=== PATIENT | female | born 1985 | race African-American/Black ===

== ENCOUNTER 2017-10-29 08:04 | Day surgery (SDC) | payer OTHER ==
[~2017-10-29 08:04] MED LIST: Acetaminophen/HYDROcodone 325-5 MG Tab PO PRN; Bupivacaine 0.25%/EPINEPHrine 1:200,000 10 ML SDV INJECT ONE; Lactated Ringers 1,000 ML IV SCH; Lidocaine 2% 5 ML SDV ONE; Midazolam 1 MG/ML 2 ML SDV ONE; Ondansetron 4 MG/2 ML SDV ONE; Propofol 200 MG/20 ML SDV ONE; Rocuronium 10 MG/ML 10 ML Syringe ONE; ceFAZolin 2 GM in Premix Bag 1 BAG IV ONE; fentaNYL 250 MCG/5 ML SDV ONE
[2017-10-29] MEDS ORDERED: ceFAZolin/Dextrose,Iso-Osmotic 2 GM/50 ML Duplex Bag IV ONE (08:20)
[2017-10-29] MEDS ORDERED: diphenhydrAMINE 50 MG/ML SDV ONE (08:22)
[2017-10-29] MEDS ORDERED: Dexamethasone 4 MG/ML 5 ML MDV ONE (08:22)
[2017-10-29] MEDS ORDERED: Bupivacaine 25%/EPINEPHrine/PF 30 ML ONE (08:40)
[2017-10-29] MEDS ORDERED: fentaNYL 100 MCG/2 ML SDV IVPUSH PRN (08:49)
[2017-10-29] MEDS ORDERED: Scopolamine 1.5 MG Transdermal Patch TRDERM PRN (08:49)
--- NOTE | 2017-10-29 08:49 | PCM.PREANE ---
Preanesthetic Assessment - Anesthesia/Transfusion/Family Hx Anesthesia History: No Prior Anesthesia Family History of Anesthesia Reaction: No Transfusion History: No Prior Transfusion(s) Intubation History: Unknown - Review of Systems General: No Symptoms Pulmonary: No Symptoms Cardiovascular: No Symptoms Gastrointestinal: No Symptoms Neurological: No Symptoms Other: Reports: None - Physical Assessment Height: 1.7 m Weight: 108.862 kg ASA Class: 2 Mental Status: Alert & Oriented x3 Airway Class: Mallampati = 2 Dentition: Reports: Normal Dentition Thyro-Mental Finger Breadths: 3 Mouth Opening Finger Breadths: 3 ROM/Head Extension: Full Lungs: Clear to Auscultation, Normal Respiratory Effort Cardiovascular: Regular Rate, Regular Rhythm - Lab Values: Laboratory Last Values Urine HCG, Qual NEGATIVE (NEGATIVE) 10/29/17 08:10 - Allergies Allergies/Adverse Reactions: Allergies Allergy/AdvReac Type Severity Reaction Status Date / Time No Known Allergies Allergy Verified 10/23/17 12:55 - Blood Blood Available: No - Anesthesia Plan Pre-Op Medication Ordered: None - Acknowledgements Anesthesia Type Planned: General Anesthesia Pt an Appropriate Candidate for the Planned Anesthesia: Yes Alternatives and Risks of Anesthesia Discussed w Pt/Guardian: Yes Pt/Guardian Understands and Agrees with Anesthesia Plan: Yes PreAnesthesia Questionnaire Respiratory History: Reports: PE Other Respiratory History: had a PE 7 years ago- no problems since [employer] History: Reports: Endocrine/Metabolic History: Reports: Obesity/BMI 30+ - SUBSTANCE USE Smoking Status *Q: Never Smoker Recreational Drug Use History: No - HOME MEDS Home Medications: Home Meds . [No Known Home Meds] 10/23/17 [History] - CURRENT (IN HOUSE) MEDS Current Meds: Current Medications Hydrocodone Bitart/Acetaminophen ([place] 325-5 Mg) 1 tab PO Q4H PRN PRN Reason: Pain Lactated Ringer's (Ringers, Lactated) 1,000 mls @ 125 mls/hr IV ASDIRECTED [facility] Last Admin: 10/29/17 08:42 Dose: 125 mls/hr Discontinued Medications Bupivacaine HCl/Epinephrine Bitart (Marcaine 0.25%/Epinephrine 1:200,000) 30 ml INJECT ONETIME ONE Stop: 10/29/17 08:01 Cefazolin Sodium/Dextrose (Ancef) Confirm Administered Dose 2 gm IV .STK-MED ONE Stop: 10/29/17 08:21 Dexamethasone (Dexamethasone) Confirm Administered Dose 20 mg .ROUTE .STK-MED ONE Stop: 10/29/17 08:23 Diphenhydramine HCl (Benadryl) Confirm Administered Dose 50 mg .ROUTE .STK-MED ONE Stop: 10/29/17 08:23 Fentanyl (Sublimaze) Confirm Administered Dose 250 mcg .ROUTE .STK-MED ONE Stop: 10/29/17 07:28 Cefazolin Sodium/Dextrose 2 gm (/ Premix) 50 mls @ 100 mls/hr IV ONETIME ONE Stop: 10/29/17 08:29 Acetaminophen (Ofirmev) Confirm Administered Dose 100 mls @ as directed IV .STK- MED ONE Stop: 10/29/17 08:24 Bupivacaine HCl/Epinephrine Bitart (Sensorc Mpf 0.25%-Epi 1:126648) Confirm Administered Dose 60 mls @ as directed .ROUTE .STK-MED ONE Stop: 10/29/17 08:41 Lidocaine (Xylocaine-Mpf 2%) Confirm Administered Dose 5 ml .ROUTE .STK-MED ONE Stop: 10/29/17 07:27 Midazolam HCl (Versed 1 Mg/Ml) Confirm Administered Dose 2 mg .ROUTE .STK-MED ONE Stop: 10/29/17 07:27 Ondansetron HCl (Zofran) Confirm Administered Dose 4 mg .ROUTE .STK-MED ONE Stop: 10/29/17 07:27 Propofol (Diprivan 20 Ml) Confirm Administered Dose 200 mg .ROUTE .STK-MED ONE Stop: 10/29/17 07:27 Rocuronium [place] (Zemuron) Confirm Administered Dose 100 mg .ROUTE .STK-MED ONE Stop: 10/29/17 07:27
[2017-10-29] MEDS ORDERED: HYDROmorphone 2 MG/ML SDV ONE ×2 (09:28→10:12)
--- NOTE | 2017-10-29 15:47 | PCM.OPNOTE ---
- General Post-Op/Procedure Note Date of Surgery/Procedure: 10/29/17 Operative Procedure(s): bilateral breast reduction Pre Op Diagnosis: bilateral macromastia Post-Op Diagnosis: Same Anesthesia Technique: General ET Tube, Local Primary Surgeon: Nicolle Prado Thread Grinder Tool: Sophie Collier Complications: None Condition: Good Free Text/Narrative:: Intake & Output 10/28/17 10/29/17 10/29/17 23:59 07:59 15:59 Intake Total 2825 Output Total 1760 Balance 1065
--- NOTE | 2017-11-03 14:30 | OR ---
SURGEON: INGRID COLUNGA MD DATE OF PROCEDURE: 10/29/2017 PREOPERATIVE DIAGNOSIS: Bilateral macromastia. POSTOPERATIVE DIAGNOSIS: Bilateral macromastia. PROCEDURE: Bilateral breast reduction. SUBSTANCE ABUSE PREVENTION COORDINATOR: LUIZA Ferrari. ANESTHESIA: General ET tube with local. INDICATIONS: Ms. Colón is a 32-year-old female with bilateral macromastia, borderline gigantomastia. Risks and benefits of breast reduction were discussed with her and she was in agreement to proceed. Risks were including, but not limited to, bleeding, infection, damage to underlying or overlying structures, possible need for future interventions, possible scarring. PROCEDURE IN DETAIL: After informed consent was obtained and placed on the chart, the patient was brought to the operating theater and laid in supine position. After adequate general anesthesia was obtained, the area was prepped and draped and a time-out was completed to confirm side and site. Attention was then paid to infiltration of 0.25% Marcaine with epinephrine in a field block of the breast. Once adequately blocked, attention was then paid to marking of an inferior pedicle at the base width of 8 cm. She would like to be as small as possible. Once adequately marked and the Ching pattern incisions were marked in the preanesthesia area with 8-9 cm limbs. The inferior pedicle was de- epithelialized and the nipple-areolar complex was marked at 36 mm. Once adequately isolated, attention was then paid to the superior skin flap, which was dissected just a little over 1 cm thick tapering to the chest wall medially and [address] to the chest wall laterally. The intervening breast tissue between the inferior pedicle and the superior skin flaps were then removed. Once adequately removed, the tissue was weighed. This measuring nearly 1100 g on the right and 1200 g on the left. Once the breast tissue was removed, the area was copiously irrigated and meticulous hemostasis was obtained. The skin flaps were redraped and stapled in place. Once symmetric, dissection was connected bilaterally and both breast tissue was sent for pathology. Once the skin was redraped in the standard fashion, the patient was sat up and symmetry was appreciated. The new position of the nipple areolar complexes was marked, the patient was laid in the supine position, and the nipple-areolar complex was cut out. Once adequately cut out, the skin was closed using deep 3-0 Monocryl stitches for the dermis using STRATAFIX and the subcuticular for the skin was a 4-0 Monocryl STRATAFIX for closure. The wounds were dressed with Steri-Strips, Mastisol, fluffs, and tape. She was placed in a compression bra. The patient tolerated the procedure well. All counts of needles were correct at the end of the case. FOLLOWUP INSTRUCTIONS: The patient will see us tomorrow in clinic. Sooner if any problems, questions, or concerns. KARTHIK VALENCIA /[id number]
== END 2017-10-29 16:05 | disposition home or self-care (01) ==
LOC: MW.SDS 08:04
PROVIDERS: ATTEND Plastic Surgery
DX: N62 Hypertrophy of breast (principal); N60.12 Diffuse cystic mastopathy of left breast; N60.11 Diffuse cystic mastopathy of right breast
CPT/HCPCS: 19318; 81025; 88304; A9270; J0690; J1100; J1170; J1200; J2250; J2405; J3010; J7120; J2704

== ENCOUNTER 2018-11-16 05:47 | Emergency (ER) | payer OTHER ==
--- NOTE | 2018-11-16 05:57 | EDM.PDOC ---
ED HPI GENERAL MEDICAL PROBLEM - General Stated Complaint: POSSIBLE DISLOCATED LEFT SHOULDER Time Seen by Provider: 11/16/18 05:56 Source of Information: Reports: Patient - History of Present Illness INITIAL COMMENTS - FREE TEXT/NARRATIVE: HISTORY AND PHYSICAL: History of present illness: [Patient presents with left shoulder pain 7 out of 10 unable to sleep off and on for the last couple of months, she has taken Tylenol with some relief, but is concerned she may have a dislocated shoulder Seems that a couple of months ago she bought a new 4 [employer] and since has been having the left arm pain her shoulder pain which she generally gets summertime as she likes to drive [address] [employer] in the nice weather, she does not know of any other injury or trauma No fever nausea vomiting chills sweats] Review of systems: As per history of present illness and below otherwise all systems reviewed and negative. Past medical history: As per history of present illness and as reviewed below otherwise noncontributory. Surgical history: As per history of present illness and as reviewed below otherwise noncontributory. Social history: No reported history of drug or alcohol abuse. Family history: As per history of present illness and as reviewed below otherwise noncontributory. Physical exam: HEENT: Atraumatic, normocephalic, pupils reactive, negative for conjunctival pallor or scleral icterus, mucous membranes moist, throat clear, neck supple, nontender, trachea midline. Lungs: Clear to auscultation, breath sounds equal bilaterally, chest nontender. Heart: S1S2, regular, negative for clicks, rubs, or JVD. Abdomen: Soft, nondistended, nontender. Negative for masses or hepatosplenomegaly. Negative for costovertebral tenderness. Pelvis: Stable nontender. Genitourinary: Deferred. Rectal: Deferred. Extremities: Atraumatic, negative for cords or calf pain. Neurovascular unremarkable. Left shoulder no pain with head movement full range of passive motion of the shoulder itself elbow and wrist on affected entirely limb neurovascularly intact tender over bicep tendon insertion, very limited exam due to pain as far as active range of motion exam Neuro: Awake, alert, oriented. Cranial nerves II through XII unremarkable. Cerebellum unremarkable. Motor and sensory unremarkable throughout. Exam nonfocal. Diagnostics: [Left shoulder complete ] Therapeutics: [Toradol Medrol Dosepak ] Impression: [Left shoulder injury] Tendinitis Definitive disposition and diagnosis as appropriate pending reevaluation and review of above. left shoulder Pain Score (Numeric/FACES): 7 - Related Data Allergies Allergy/AdvReac Type Severity Reaction Status Date / Time No Known Allergies Allergy Verified 11/16/18 06:00 Home Meds: Home Meds . [No Known Home Meds] 11/16/18 [History] Past Medical History Respiratory History: Reports: PE Other Respiratory History: had a PE 7 years ago- no problems since [employer] History: Reports: Endocrine/Metabolic History: Reports: Obesity/BMI 30+ ED ROS GENERAL - Review of Systems Review Of Systems: See Below ED EXAM, GENERAL - Physical Exam Exam: See Below Course - Vital Signs Last Recorded V/S: Last Vital Signs Temp 97.2 F 11/16/18 05:50 Pulse 85 11/16/18 05:50 Resp 18 11/16/18 05:50 BP 128/79 11/16/18 05:50 Pulse Ox 99 11/16/18 05:50 - Orders/Labs/Meds Orders: Active Orders 24 hr Category Date Time Status Shoulder Comp Lt [CR] Stat Exams 11/16/18 05:56 Taken Departure - Departure Time of Disposition: 06:22 Disposition: Home, Self-Care 01 Condition: Good Clinical Impression: Injury of left shoulder, Tendinitis - Discharge Information Referrals: PCP,None [Primary Care Provider] - Additional Instructions: Medication as prescribed Return if symptoms persist or worsen Follow-up with orthopedist, call phone number below to schedule appropriate follow-up [facility] [address], [address] [place] [address] my orthopedic The following information is given to patients seen in the emergency department who are being discharged to home. This information is to outline your options for follow-up care. We provide all patients seen in our emergency department with a follow-up referral. The need for follow-up, as well as the timing and circumstances, are variable depending upon the specifics of your emergency department visit. If you don't have a primary care physician on staff, we will provide you with a referral. We always advise you to contact your personal physician following an emergency department visit to inform them of the circumstance of the visit and for follow-up with them and/or the need for any referrals to a consulting specialist. The emergency department will also refer you to a specialist when appropriate. This referral assures that you have the opportunity for follow-up care with a specialist. All of these measure are taken in an effort to provide you with optimal care, which includes your follow-up. Under all circumstances we always encourage you to contact your private physician who remains a resource for coordinating your care. When calling for follow-up care, please make the office aware that this follow-up is from your recent emergency room visit. If for any reason you are refused follow-up, please contact the [facility] emergency department at and asked to speak to the emergency department charge nurse. - My Orders Last 24 Hours: My Active Orders 11/16/18 05:56 Shoulder Comp Lt [CR] Stat - Assessment/Plan Last 24 Hours: My Active Orders 11/16/18 05:56 Shoulder Comp Lt [CR] Stat
--- NOTE | 2018-11-16 06:30 | CR ---
INDICATION: Shoulder pain. FINDINGS: Two views of the left shoulder show no evidence of acute fracture or dislocation. No other bony or soft tissue abnormalities identified. Dictated by Catrachito Moore MD @ 11/16/2018 6:28:14 AM Dictated by: Catrachito Moore MD @ 11/16/2018 06:28:24 (Electronically Signed)
== END 2018-11-16 06:31 | disposition home or self-care (01) ==
LOC: MW.ED 05:47
DX: S49.92XA Unspecified injury of left shoulder and upper arm, initial encounter (principal); M77.9 Enthesopathy, unspecified; X58.XXXA Exposure to other specified factors, initial encounter
CPT/HCPCS: 73030-26-LT; 73030-LT; 99283; 99283-25